=== PATIENT | male | born 1945 | race Hispanic/Latino ===

== ENCOUNTER 2019-04-16 10:00 | Inpatient (IN) | payer OTHER ==
[~2019-04-16] VITALS: Ht 180.3 cm; Wt 111.6 kg
[2019-04-16 10:59] VITALS: BP 146/74
[2019-04-16 11:01] LABS: EOSINOPHILS % (AUTO) 7.3 % (0.0-8.0); HEMATOCRIT 39.7 % (42-54); LYMPHOCYTES % (AUTO) 22.9 % (21.0-51.0); MEAN CORPUSCULAR HEMOGLOBIN 31.1 pg (27.0-33.0); MEAN CORPUSCULAR HGB CONC 34.5 g/dL (32.0-36.0); MONOCYTES % (AUTO) 7.5 % (3.0-13.0); NEUTROPHILS % (AUTO) 61.3 % (40.0-77.0); PLATELET COUNT (AUTO) 187 K/uL (130-400); RED BLOOD CELL COUNT(AUTO) 4.41 MIL/uL (4.50-6.20); RED CELL DISTRIBUTION WIDTH 13.2 % (11.0-15.5); WHITE BLOOD COUNT (AUTO) 6.6 K/uL (4.8-10.8)
[2019-04-16 11:15] LABS: CREATININE 1.5 mg/dL (0.5-1.5); POTASSIUM 4.5 mmol/L (3.5-5.1)
[2019-04-16 12:13] LABS: INR 1.01 (0.85-1.15); PARTIAL THROMBOPLASTIN TIME 28.9 SEC (26.3-35.5); PROTHROMBIN TIME 10.6 SEC (9.6-11.6)
[2019-04-16] MEDS ORDERED: CEFAZOLIN SODIUM 1 GM VIAL IVP SCH (14:15)
[2019-04-16] MEDS ORDERED: VITA1CAP85 PO (15:44)
[2019-04-16] MEDS ORDERED: RANI150T7 PO (15:44)
[2019-04-16] MEDS ORDERED: CILO100T PO (15:44)
[2019-04-16] MEDS ORDERED: GABA-531 PO (15:44)
[2019-04-16] MEDS ORDERED: LOSA100T58 PO (15:44)
[2019-04-16] MEDS ORDERED: LEVO25TA54 PO (15:44)
[2019-04-16] MEDS ORDERED: CITALOPRAM PO (15:44)
[2019-04-16] MEDS ORDERED: TIMOLOL OU (15:44)
[2019-04-16] MEDS ORDERED: CERTIRIZINE HCL PO (15:44)
[2019-04-16] MEDS ORDERED: MECL-111 PO (15:44)
[2019-04-16] MEDS ORDERED: CARV25TA PO (15:44)
[2019-04-16] MEDS ORDERED: INSLAN SQ ×2 (15:44→16:01)
[2019-04-16] MEDS ORDERED: CLOTRIMAZOLE 1% (15:44)
[2019-04-16] MEDS ORDERED: CARBOXYMETHYLCELLULOSE OU (15:44)
[2019-04-16] MEDS ORDERED: LATA7.5D OP (15:44)
[2019-04-16] MEDS ORDERED: CHOLECALCIFEROL PO (15:44)
[2019-04-16] MEDS ORDERED: BRIM5DRO4 OU (15:44)
[2019-04-16] MEDS ORDERED: FISH1CAP20 PO (15:44)
[2019-04-16] MEDS ORDERED: PRAV80TA21 PO (16:01)
[2019-04-19] VITALS (24 sets, daily range): BP systolic 116–165; BP diastolic 53–80
[2019-04-19] MEDS ORDERED: CEFAZOLIN SODIUM 1 GM VIAL ONE (10:57)
[2019-04-19] MEDS ORDERED: SODIUM CHLORIDE 0.9% 1000ML 1,000 ML IV ONE (10:57)
[2019-04-19] MEDS ORDERED: ROCURONIUM 10MG/1ML SYR 10 MG/ML ML ONE ×2 (12:04→12:32)
[2019-04-19] MEDS ORDERED: PROPOFOL 10 MG/ML 20ML VIAL IV ONE (12:04)
[2019-04-19] MEDS ORDERED: LIDOCAINE PF 2% 5ML ABBOJECT ONE (12:04)
[2019-04-19] MEDS ORDERED: MIDAZOLAM HCL 1 MG/ML 2ML VIAL ONE (12:04)
[2019-04-19] MEDS ORDERED: FENTANYL CITRATE PF 50 MCG/1 ML 2ML VIAL ONE ×2 (12:05→14:09)
[2019-04-19] MEDS ORDERED: BUPIVACAINE/PF 0.25% 30ML VIAL IJ ONE (12:06)
[2019-04-19] MEDS ORDERED: BACITRACIN 50,000 UNIT VIAL ONE (12:06)
[2019-04-19] MEDS ORDERED: THROMBIN-JMI 5000 UNIT/VIAL TP ONE (12:07)
[2019-04-19] MEDS ORDERED: ONDANSETRON HCL 4 MG/2 ML VIAL ONE (12:29)
[2019-04-19] MEDS ORDERED: DEXAMETHASONE SOD PHOSPHATE 4 MG/ML 1ML VIAL ONE (12:29)
[2019-04-19] MEDS ORDERED: NEOSTIGMINE 5MG/5ML SYR IV ONE (12:40)
[2019-04-19] MEDS ORDERED: GLYCOPYRROLATE 1 MG/5 ML SYRINGE ONE (12:40)
[2019-04-19] MEDS ORDERED: VANCOMYCIN HCL 1 GM VIAL ONE (12:45)
[2019-04-19] MEDS ORDERED: TOBRAMYCIN SULFATE 40MG/1ML VIAL ONE (12:46)
[2019-04-19] MEDS ORDERED: ASPI-555 PO (12:57)
[2019-04-19] MEDS ORDERED: BUDE0.255 IH (12:57)
[2019-04-19] MEDS ORDERED: INSLAN SQ ×2 (13:03)
[2019-04-19] MEDS ORDERED: INSU100C6 SQ (13:09)
[2019-04-19] MEDS ORDERED: IPRATROPIUM/ALBUTEROL SULFATE 3 ML SOLUTION IH ONE (15:09)
[2019-04-19] MEDS ORDERED: MORPHINE SULFATE 2 MG/ML 1ML SYG ONE (15:12)
[2019-04-19] MEDS ORDERED: MEPERIDINE-PF 25 MG/ML SYG ONE ×2 (15:22→21:10)
--- NOTE | 2019-04-19 15:48 | NUR ---
DCP CM met with pt and spouse discussed dc plans. Pt is semi-independent prior to admission, lives at home with spouse. Has a walker, wheelchair, shower chair. Denies any other equipments/services. Pt feels safe to go back home, spouse able to assist with transportation and needs. DC plan to home once stable. CM to cont to follow up. Addendum: 04/19/19 at 1551 by HUSSEIN GARCIA LVN CM Amended: Links added.
[2019-04-19] MEDS ORDERED: TRIMETHOBENZAMIDE HCL 100MG/1ML VIAL IM PRN (16:30)
[2019-04-19] MEDS ORDERED: MEPERIDINE-PF 75 MG/ML SYG IM PRN (16:30)
[2019-04-19] MEDS ORDERED: HYDROCODONE/ACETAMINOPHEN 10/325 MG TAB PO PRN (16:30)
[2019-04-19] MEDS ORDERED: SODIUM CHLORIDE 0.9% 1000ML 1,000 ML IV SCH (16:30)
[2019-04-19] MEDS ORDERED: ACETAMINOPHEN-CODEINE 300/30MG TAB PO PRN ×2 (16:30)
[2019-04-19] MEDS: PHARMACY COMMUNICATION MISC SCH ×2 (19:45→21:33)
[2019-04-19] MEDS ORDERED: GLUCAGON 1MG KIT 1 MG ML IM PRN (19:45)
[2019-04-19] MEDS ORDERED: DEXTROSE 50%-WATER 50 ML DISP.SYRIN IV PRN (19:45)
[2019-04-19] MEDS: BUDESONIDE 0.25 MG/2 ML INH IH SCH (20:24)
[2019-04-19] MEDS: CARVEDILOL 12.5 MG TABLET PO SCH (21:00)
[2019-04-19] MEDS: FISH OIL 1000 MG/CAP PO SCH (21:00)
[2019-04-19] MEDS: LOSARTAN 50 MG TABLET PO SCH (21:00)
[2019-04-19] MEDS ORDERED: LATANOPROST 2.5 ML DROPS OP SCH (21:00)
[2019-04-19] MEDS: FAMOTIDINE 20MG TAB 20 MG TAB PO SCH (21:00)
[2019-04-19] MEDS: CILOSTAZOL 100 MG TAB PO SCH (21:00)
[2019-04-19] MEDS ORDERED: GABAPENTIN 300 MG CAPSULE PO SCH (21:00)
[2019-04-19] MEDS: CITALOPRAM 20 MG TABLET PO SCH (21:00)
[2019-04-19] MEDS: MECLIZINE HCL 25 MG TABLET PO SCH (21:00)
[2019-04-19] MEDS: BRIMONIDINE TARTRATE 0.2% 5 ML BOTTLE OU SCH (21:00)
[2019-04-19] MEDS ORDERED: MEPERIDINE-PF 50 MG/ML SYG ONE (21:09)
[2019-04-19] MEDS: CLOTRIMAZOLE 30 GM CREAM.GM. TP SCH (21:18)
[2019-04-19] MEDS: INSULIN LISPRO 100 UNIT/ML 3ML SQ SCH (21:32)
[2019-04-20 04:00] VITALS: BP 164/66
[2019-04-20] MEDS: INSULIN LISPRO 100 UNIT/ML 3ML SQ SCH (06:00)
[2019-04-20] MEDS ORDERED: LEVOTHYROXINE 25 MCG TABLET PO SCH (06:30)
[2019-04-20] MEDS: BUDESONIDE 0.25 MG/2 ML INH IH SCH (07:26)
[2019-04-20] MEDS ORDERED: INSULIN GLARGINE 100 UNITS/ML 10 ML VIAL SQ SCH (07:30)
[2019-04-20 08:00] VITALS: BP 166/68
[2019-04-20 09:00] VITALS: BP 166/68
[2019-04-20] MEDS ORDERED: VITAMIN B COMPLEX 1 CAPSULE PO SCH (09:00)
[2019-04-20] MEDS: FAMOTIDINE 20MG TAB 20 MG TAB PO SCH (09:00)
[2019-04-20] MEDS ORDERED: TIMOLOL OU SCH (09:00)
[2019-04-20] MEDS ORDERED: CHOLECALCIFEROL PO SCH (09:00)
[2019-04-20] MEDS: BRIMONIDINE TARTRATE 0.2% 5 ML BOTTLE OU SCH (09:00)
[2019-04-20] MEDS: CILOSTAZOL 100 MG TAB PO SCH (09:00)
[2019-04-20] MEDS: CITALOPRAM 20 MG TABLET PO SCH (09:00)
[2019-04-20] MEDS: LOSARTAN 50 MG TABLET PO SCH (09:00)
[2019-04-20] MEDS ORDERED: CETIRIZINE HCL 5 MG TABLET PO SCH (09:00)
[2019-04-20] MEDS: CARVEDILOL 12.5 MG TABLET PO SCH (09:00)
[2019-04-20] MEDS: CLOTRIMAZOLE 30 GM CREAM.GM. TP SCH (09:00)
[2019-04-20] MEDS ORDERED: CARBOXYMETHYLCELLULOSE OP PRN (09:00)
[2019-04-20] MEDS: FISH OIL 1000 MG/CAP PO SCH (09:00)
[2019-04-20] MEDS: MECLIZINE HCL 25 MG TABLET PO SCH (09:00)
--- NOTE | 2019-04-20 10:25 | NUR ---
DISCHARGE DISCHARGE TEACHING DONE WITH PATIENT AND USING TEACHBACK METHOD, VERBALIZED UNDERSTANDING. NO NOTED SOB OR DISTRESS. NEW MEDICATION ADMINISTRATION TEACHING DONE WITH PATIENT, VERBALIZED UNDERSTANDING. PT AWARE OF NEED TO SET UP APPOINTMENT WITH DR. VICENTE. DRESSING TO NECK CHANGED, INCISION IS DRY AND INTACT. DRESSING TEACHING DONE WITH PATIENT AND , VERBALIZED UNDERSTANDING. IV REMOVED, CATH TIP INTACT. PENDING TO BE TRANSFERRED OUT VIA PRIVATE VEHICLE.
[2019-04-20] MEDS ORDERED: Pravastatin Sodium 80 MG PO SCH (21:00)
== END 2019-04-20 10:47 | disposition home or self-care (01) | DRG 29 ==
LOC: EDSTATUS 10:00 → DAHIP 04-19 09:27 → 4AH 04-19 15:38
PROVIDERS: ADMIT Neurological Surgery; ATTEND Neurological Surgery
PROC: 0RG20A0 Fusion of 2 or more Cervical Vertebral Joints with Interbody Fusion Device, Anterior Approach, Anterior Column, Open Approach (ICD-10-PCS; principal; 2019-04-19 12:05)
PROC: 0RB30ZZ Excision of Cervical Vertebral Disc, Open Approach (ICD-10-PCS; 2019-04-19 12:05)
PROC: 4A11X4G Monitoring of Peripheral Nervous Electrical Activity, Intraoperative, External Approach (ICD-10-PCS; 2019-04-19 12:05)
DX: G95.29 Other cord compression (principal); M47.12 Other spondylosis with myelopathy, cervical region; M25.78 Osteophyte, vertebrae; E11.9 Type 2 diabetes mellitus without complications; E78.00 Pure hypercholesterolemia, unspecified; I10 Essential (primary) hypertension; F41.9 Anxiety disorder, unspecified; F43.10 Post-traumatic stress disorder, unspecified; M48.02 Spinal stenosis, cervical region; Z88.8 Allergy status to other drugs, medicaments and biological substances; Z91.041 Radiographic dye allergy status; Z79.899 Other long term (current) drug therapy
CPT/HCPCS: 36415; 72020; 80048; 82948; 85025; 85610; 85730; 94640; A4218; A4344; G0378; J0690; J1030; J1100; J2001; J2175; J2250; J2405; J2704; J2710; J3010; J3260; J3370; J3490; J7030; J7120

== ENCOUNTER 2019-07-08 18:01 | Emergency (ER) | payer OTHER ==
[~2019-07-08 18:01] MED LIST: BRIM5DRO4 OU; BUDE0.255 IH; CARBOXYMETHYLCELLULOSE OU; CARV25TA PO; CERTIRIZINE HCL PO; CHOLECALCIFEROL PO; CILO100T PO; CITALOPRAM PO; CLOTRIMAZOLE 1%; FISH1CAP20 PO; GABA-531 PO; INSLAN SQ; INSU100C6 SQ; LATA7.5D OP; LEVO25TA54 PO; LOSA100T58 PO; MECL-111 PO; PRAV80TA21 PO; RANI150T7 PO; TIMOLOL OU; VITA1CAP85 PO
[2019-07-08 18:59] LABS: INR 0.98 (0.85-1.15); PARTIAL THROMBOPLASTIN TIME 28.5 SEC (26.3-35.5); PROTHROMBIN TIME 10.3 SEC (9.6-11.6)
[2019-07-08 19:03] LABS: ALBUMIN 3.7 g/dL (3.5-5.0); BILIRUBIN,TOTAL 0.4 mg/dL (0.2-1.0); CREATININE 1.9 mg/dL (0.5-1.5); POTASSIUM 4.1 mmol/L (3.5-5.1); TOTAL PROTEIN, SERUM 6.9 g/dL (6.0-8.3)
[2019-07-08 19:05] LABS: EOSINOPHILS % (AUTO) 5.6 % (0.0-8.0); LYMPHOCYTES % (AUTO) 23.5 % (21.0-51.0); MEAN CORPUSCULAR HEMOGLOBIN 30.6 pg (27.0-33.0); MEAN CORPUSCULAR HGB CONC 33.9 g/dL (32.0-36.0); MEAN CORPUSCULAR VOLUME 90.2 fL (79-99); MONOCYTES % (AUTO) 6.7 % (3.0-13.0); NEUTROPHILS % (AUTO) 63.2 % (40.0-77.0); PLATELET COUNT (AUTO) 198 K/uL (130-400); RED BLOOD CELL COUNT(AUTO) 4.22 MIL/uL (4.50-6.20); RED CELL DISTRIBUTION WIDTH 13.5 % (11.0-15.5); WHITE BLOOD COUNT (AUTO) 7.3 K/uL (4.8-10.8)
[2019-07-08] MEDS ORDERED: ASPIRIN 325 MG TABLET ONE (20:19)
[2019-07-08 21:23] LABS: HEMOGLOBIN A1C 9.2 % (4.0-6.0)
[2019-07-08 21:43] LABS: CHOLESTEROL 174 mg/dL (<200); LDL DIRECT 92 mg/dL (0-99); TRIGLYCERIDES 337 mg/dL (30-200)
[2019-07-08 22:12] LABS: HDL CHOLESTEROL 36 mg/dL (29-71)
== END 2019-07-08 21:59 | disposition left against medical advice (07) ==
LOC: EDH 18:01
DX: R47.81 Slurred speech (principal); I10 Essential (primary) hypertension; E11.9 Type 2 diabetes mellitus without complications; Z87.891 Personal history of nicotine dependence; Z88.6 Allergy status to analgesic agent
CPT/HCPCS: 36415; 70450; 71045; 80053; 80061; 82550; 82948; 83036; 83721; 84484; 85025; 85610; 85730; 93005